=== PATIENT | female | born 1980 | race Caucasian/White ===

== ENCOUNTER 2016-12-28 05:10 | Emergency (ER) | payer SELFPAY ==
--- NOTE | ~2016-12-28 | HP ---
History And Physical [place] [id number] [facility] [place]. [address] NAME: CYNDEE ALVARADO : 76 STATUS : REG ER PAT#: [id number] AGE: 36 ADM/REG DATE : 12/28/16 MR#: [id number] REPORT SERV DATE: 12/28/16 DICTATED BY: ELIO STERLING DATE: 12/28/16 REPORT STATUS : Draft TRANSCRIBED BY: MODL DATE: 12/28/16 DATE OF ADMISSION: 12/28/2016 POINT OF ENTRY: [facility] Emergency Department. CHIEF COMPLAINT: Seizure and chest pain. HISTORY OF PRESENT ILLNESS: Ms. Alvarado is a 36-year-old female with history of seizure disorder, who presents to the emergency room today after having suffered a seizure approximately two days ago, now with resulting chest and epigastric pain and shortness of breath. The patient states that she has not taken her Keppra for the past few days as it caused her severe headache. She suffered a seizure episode about two days ago that was witnessed by her fiance. She was eating when she suffered a seizure episode and choked on some food and reportedly became cyanotic. The patient presented to the emergency room today for lower chest and upper epigastric pain with associated shortness of breath. She denies any fevers, night sweats, chills, or sputum production. Does report a dry cough with deep inspiration. Initial evaluation in the emergency department notable for stable vital signs. She does have a white count of 16,800. Remainder of labs were otherwise unremarkable except for 8 white blood cells in her urine. CT of the abdomen and pelvis was unremarkable for any abdominopelvic pathology but was notable for some bilateral patchy airspace opacities concerning for pneumonia. She was subsequently admitted to the Hospitalist Service for further evaluation and management. In addition to her seizure disorder with associated concern for aspiration and resulting chest and epigastric pain, she has no other active complaints. She does state that she has chronic pain, anxiety, and PTSD from multiple various traumas. COMPREHENSIVE SYSTEM REVIEW: Otherwise negative unless listed in history of present illness. PREVIOUS MEDICAL HISTORY: 1. Seizure disorder. 2. Active tobacco abuse. 3. Medication noncompliance. 4. Anxiety. 5. Chronic pain. SURGICAL HISTORY: None. MEDICATIONS: Pending at the time of dictation. The patient states that she takes Keppra 500 mg b.i.d. as well as Xanax 2 mg q.i.d. and oxycodone 20 mg q.i.d. per review of the [place] Controlled Substance Database, unable to find any recent prescriptions for oxycodone or Xanax. History And Physical [address] [place]. [address] NAME: CYNDEE ALVARADO : 76 STATUS : REG ER PAT#: [id number] AGE: 36 ADM/REG DATE : 12/28/16 MR#: [id number] REPORT SERV DATE: 12/28/16 DICTATED BY: ELIO STERLING DATE: 12/28/16 REPORT STATUS : Draft TRANSCRIBED BY: MARGY DATE: 12/28/16 ALLERGIES: REPORTEDLY ARE LATEX, DARVOCET, PHENERGAN, AND POSSIBLY PENICILLIN. SOCIAL HISTORY: Does smoke one pack per day. Denies any alcohol. Denies any illicits. She is currently unemployed. FAMILY MEDICAL HISTORY: Mother is healthy. Father of lung cancer. Siblings are healthy. LABS AND IMAGIN. White count 16.8, hemoglobin 11.8, hematocrit 36.0, and platelet count is 207. 2. Sodium is 146, potassium 3.7, chloride 106, carbon dioxide 29, BUN 11, creatinine 0.72, glucose is 114, calcium is 8.9, protein is 7.1, albumin is 3.2, bilirubin is 0.2, ALT is 44, AST 23, and alkaline phosphatase is 92. 3. Urinalysis: Spec gravity is 1.01. Small leukocyte esterase with 36 red blood cells and 8 white blood cells per high-powered field. 4. Lipase is 156. 5. EKG per my review shows normal sinus rhythm. No evidence of any acute ischemia or infarction. 6. Chest x-ray per my review shows diffuse patchy infiltrates and opacities concerning for possible pneumonia. 7. CT scan of the abdomen and pelvis shows patchy airspace opacities in the bilateral bases concerning for pneumonia, otherwise, no acute abdominopelvic pathology. PHYSICAL EXAMINATION: VITAL SIGNS: Temperature is 97.0 degrees Fahrenheit, pulse is 101, respirations 18, saturating 96% on room air, and blood pressure 125/86. GENERAL: The patient is awake, alert. She is very distraught, histrionic, and agitated young female. HEENT: Atraumatic and normocephalic. Moist mucous membranes. Pupils are equal, round, reactive to light and accommodation. Extraocular eye movements intact. No scleral icterus. NECK: No jugular venous distention. No carotid bruits. CARDIAC: Regular rate and rhythm. No murmurs, rubs, or gallops. Normal S1, S2. LUNGS: Does have some decreased breath sounds at bases as well as some very faint inspiratory rhonchi and crackles in the bilateral bases but is on room air in no distress. ABDOMEN: Soft. Mildly tender to palpation over the epigastrium but no rebound, guarding, or rigidity. EXTREMITIES: Warm, perfused. No cyanosis, clubbing, or edema. SKIN: Warm and dry. PSYCH: The patient is a very anxious and agitated with very labile moods and frequently tearful. NEURO: Alert and oriented x3. Cranial nerves 2 through 12 grossly intact. Speech is normal. Gait not assessed. ASSESSMENT: Ms. Alvarado is a 36-year-old female who reportedly suffered a seizure episode two days ago with some concern for aspiration, now presents with chest and epigastric pain and found to have evidence of likely aspiration pneumonia. History And Physical [address] [address] NAME: CYNDEE ALVARADO : 76 STATUS : REG ER PAT#: [id number] AGE: 36 ADM/REG DATE : 12/28/16 MR#: [id number] REPORT SERV DATE: 12/28/16 DICTATED BY: ELIO STERLING DATE: 12/28/16 REPORT STATUS : Draft TRANSCRIBED BY: MARGY DATE: 12/28/16 PROBLEM LIST: 1. Possible aspiration pneumonia. 2. Seizure disorder. 3. Medication noncompliance. 4. Drug-seeking behavior. 5. Active tobacco abuse. 6. Chest and epigastric pain. 7. Leukocytosis. PLAN: 1. Seizure disorder. We will restart patient on her home doses of Keppra. Place her on seizure precautions. 2. Possible aspiration pneumonia. We will obtain a CT scan of the chest to better visualize the opacities as noted on CT of the abdomen and pelvis. Blood cultures were obtained. Try to obtain sputum culture as well as urinary antigens. Place the patient on cefepime and Flagyl given patient's, what sounds to be like, penicillin intolerance. 3. Drug-seeking behavior. The patient repeatedly has been demanding additional doses of narcotics. She has received morphine 8 mg IV as well as Dilaudid 0.5 mg IV and states that it is not helping her pain at all. Also was asking for something to help her sleep. I am not able to confirm her medications of oxycodone and Xanax per [place] Controlled Substance Database. This will need to be confirmed via pharmacy. In the meantime, we will place her on some low-dose oral Lortab and/or Percocet for pain control. 4. Chest and epigastric pain. Chest x-ray, EKG, labs, as well as CT of abdomen and pelvis have only been notable for some aspiration pneumonia. It is unclear what is causing her reported severe epigastric and chest pain other than what we have been able to identify so far here in the emergency department. We will continue to monitor. 5. DVT prophylaxis. Lovenox subcu. CODE STATUS: The patient wished to be full code. JCB/MODL Elio Sterling MD / [id number] CC: MD Daniel Benz M.D.
[2016-12-28 02:38] LABS: BASOPHILS 0.2 %; BASOPHILS ABSOLUTE 0.03 10/3/uL (0.0-0.16); EOSINOPHILS 1.1 %; EOSINOPHILS ABSOLUTE 0.18 10/3/uL (0.0-0.53); IMMATURE GRANULOCYTES 0.5 %; IMMATURE GRANULOCYTES ABSOLUTE 0.09 10/3/uL (0.0-0.11); LYMPHOCYTES 10.1 %; LYMPHOCYTES ABSOLUTE 1.69 10/3/uL (0.67-4.30); MEAN PLATELET VOLUME 9.9 fL (9.2-13.0); MONOCYTES 3.5 %; MONOCYTES ABSOLUTE 0.59 10/3/uL (0.21-1.20); NEUTROPHILS 84.6 %; NEUTROPHILS ABSOLUTE 14.21 10/3/uL (2.02-8.40); PLATELET COUNT 207 10/3/uL (150-400); RBC DISTRIBUTION WIDTH 13.8 % (12.0-16.0); RED CELL COUNT 3.87 10/6/uL (4.0-5.6)
[2016-12-28 02:40] LABS: ER CBC TAT 0 Hrs 07 Mins; HEMOGLOBIN 11.8 g/dL (12.0-16.0); MANUAL DIFF NO %; MEAN CORPUS HGB CONC 32.8 g/dL (32.0-36.0); MEAN CORPUSCULAR HEMOGLOB 30.5 pg (26.0-34.0); WHITE BLOOD CELLS 16.8 10/3/uL (4.5-10.5)
[2016-12-28 02:54] LABS: BUN (BLOOD UREA NITROGEN) 11 MG/DL (6-23); CALCIUM, SERUM 8.9 MG/DL (8.5-10.4); CHLORIDE, SERUM 106 MMOL/L (96-112); CO2 (CARBON DIOXIDE) 29 MMOL/L (24-34); CREATININE 0.72 MG/DL (0.55-1.02); GFR AFRICAN AMERICAN 123 ML/MIN (>=60); GFR NON AFRICAN AMERICAN 106 ML/MIN (>=60); GLUCOSE, SERUM 114 MG/DL (60-99); POTASSIUM, SERUM 3.7 MMOL/L (3.5-5.3); SGOT(AST) 23 U/L (5-40); SGPT(ALT) 44 U/L (5-65); SODIUM, SERUM 146 MMOL/L (135-148); TOTAL BILIRUBIN 0.2 MG/DL (0-1.2); TOTAL PROTEIN 7.1 G/DL (6.0-8.5)
[2016-12-28 02:55] LABS: A/G RATIO 0.8 (0.7-1.9); ALBUMIN 3.2 G/DL (3.5-5.0); ALKALINE PHOSPHATASE 92 U/L (45-117); GLOBULIN 3.9 G/DL (2.5-4.1)
[2016-12-28 03:05] LABS: ASCORBIC ACID (UR NOT ORDER) NEG (NEG); BILIRUBIN, URINE NEGATIVE (NEG); ER URINALYSIS TAT 0 Hrs 00 Mins; KETONE, URINE NEGATIVE (NEG); LEUKOCYTE ESTERASE(NOT OR SMALL (NEG); NITRITE (URINE) NEG (NEG); WBC (NOT ORDERED) (RFLEX) 8 (0-5)
[2016-12-28 06:46] LABS: LACTATE 1.2 MMOL/L (0.3-2.4)
[2016-12-28 07:51] LABS: AMPHETAMINES (NOT ORD) NEG (NEG); BARBITURATES (NOT ORDERED NEG (NEG); BENZODIAZEPINES (NOT ORD) POS (NEG); CANNABINOIDS (THC) NEG (NEG); COCAINE (NOT ORDERED) NEG (NEG); OPIATES NEG (NEG); PHENCYCLIDINE(PCP) NEG (NEG); TRICYCLICS NEG (NEG)
== END 2016-12-28 06:50 | disposition left against medical advice (07) ==
LOC: ER 05:10
PROVIDERS: Internal Medicine; Physician Assistant; Specialist
DX: R56.9 Unspecified convulsions (principal); J69.0 Pneumonitis due to inhalation of food and vomit; F17.200 Nicotine dependence, unspecified, uncomplicated; Z90.710 Acquired absence of both cervix and uterus; Z88.6 Allergy status to analgesic agent; Z88.8 Allergy status to other drugs, medicaments and biological substances; Z91.040 Latex allergy status
CPT/HCPCS: 71010; 74176; 80053; 80305; 81001; 83605; 83690; 84703; 85025; 87040; 87086; 93005; 96374; 96375; 99284; J1170; J1953

== ENCOUNTER 2016-12-29 21:18 | Emergency (ER) | payer SELFPAY ==
[2016-12-29 20:51] LABS: BASOPHILS 0.3 %; BASOPHILS ABSOLUTE 0.04 10/3/uL (0.0-0.16); EOSINOPHILS 0.6 %; EOSINOPHILS ABSOLUTE 0.07 10/3/uL (0.0-0.53); ER CBC TAT 0 Hrs 11 Mins; HEMATOCRIT 35.1 % (36.0-48.0); HEMOGLOBIN 11.6 g/dL (12.0-16.0); IMMATURE GRANULOCYTES 0.6 %; IMMATURE GRANULOCYTES ABSOLUTE 0.07 10/3/uL (0.0-0.11); LYMPHOCYTES 10.8 %; LYMPHOCYTES ABSOLUTE 1.25 10/3/uL (0.67-4.30); MEAN CORPUSCULAR HEMOGLOB 30.8 pg (26.0-34.0); MEAN CORPUSCULAR VOLUME 93.1 fL (80-100); MEAN PLATELET VOLUME 11.2 fL (9.2-13.0); MONOCYTES 4.2 %; MONOCYTES ABSOLUTE 0.49 10/3/uL (0.21-1.20); NEUTROPHILS 83.5 %; NEUTROPHILS ABSOLUTE 9.67 10/3/uL (2.02-8.40); PLATELET COUNT 190 10/3/uL (150-400); RED CELL COUNT 3.77 10/6/uL (4.0-5.6); WHITE BLOOD CELLS 11.6 10/3/uL (4.5-10.5)
[2016-12-29 20:56] LABS: MANUAL DIFF NO %
[2016-12-29 21:10] LABS: PLATELET ESTIMATE ADQ (ADEQUATE); RBC MORPHOLOGY NORM (NORMAL)
[2016-12-29 21:23] LABS: BUN (BLOOD UREA NITROGEN) 9 MG/DL (6-23); CALCIUM, SERUM 8.6 MG/DL (8.5-10.4); CHLORIDE, SERUM 106 MMOL/L (96-112); CO2 (CARBON DIOXIDE) 27 MMOL/L (24-34); CREATININE 0.67 MG/DL (0.55-1.02); GFR AFRICAN AMERICAN 129 ML/MIN (>=60); GFR NON AFRICAN AMERICAN 112 ML/MIN (>=60); POTASSIUM, SERUM 4.2 MMOL/L (3.5-5.3); SODIUM, SERUM 143 MMOL/L (135-148); TROPONIN I <0.02 NG/ML (<0.05)
[2016-12-29 21:29] LABS: GLUCOSE, SERUM 86 MG/DL (60-99)
[2016-12-29 21:30] LABS: CHEST PAIN PROFILE TAT 0 Hrs 43 Mins
== END 2016-12-29 22:00 | disposition left against medical advice (07) ==
LOC: ER 21:18
PROVIDERS: Physician Assistant
DX: R07.9 Chest pain, unspecified (principal); G40.909 Epilepsy, unspecified, not intractable, without status epilepticus; F43.10 Post-traumatic stress disorder, unspecified; F17.200 Nicotine dependence, unspecified, uncomplicated; Z90.710 Acquired absence of both cervix and uterus; Z88.6 Allergy status to analgesic agent; Z88.8 Allergy status to other drugs, medicaments and biological substances; Z91.040 Latex allergy status
CPT/HCPCS: 71020; 80048; 83735; 84484; 85025; 85610; 85730; 87040; 99285